=== PATIENT | female | born 2000 | race African-American/Black ===

== ENCOUNTER 2024-01-04 08:07 | Emergency (ER) | payer OTHER ==
[~2024-01-04] VITALS: Ht 165.1 cm; Wt 49.6 kg
[2024-01-04] MEDS: FAMOTIDINE 20 MG/2 ML VIAL IV ONE (09:02)
[2024-01-04] MEDS: LACTATED RINGER'S 1,000 ML INJ ONE (09:02)
[2024-01-04] MEDS: PROMETHAZINE 25MG/ NS 50ML (IV) IV ONE (09:03)
[2024-01-04] MEDS ORDERED: PROMETHAZINE HC25 M1 PO (10:55)
[2024-01-04] MEDS ORDERED: TYLENOL325 MG PO (10:55)
[2024-01-04 11:25] VITALS: PULSE 61; RESP 14; TEMP 99.1; O2SAT 99
[2024-01-04] MEDS: METOCLOPRAMIDE HCL 10 MG/2ML VIAL IV ONE (11:25)
== END 2024-01-04 12:18 | disposition home or self-care (01) ==
LOC: FSED 08:16
DX: O21.0 Mild hyperemesis gravidarum (principal); R10.33 Periumbilical pain; O99.331 Smoking (tobacco) complicating pregnancy, first trimester
CPT/HCPCS: 76801; 80048; 80076; 81003; 81025; 85025; 96374; 96375; 99284; J2550; J2765; J7121